=== PATIENT | male | born 1995 | race African-American/Black ===

== ENCOUNTER 2020-10-28 23:35 | Emergency (ER) | payer SELFPAY ==
[~2020-10-28] VITALS: Ht 180.3 cm; Wt 61.0 kg
[2020-10-29] MEDS ORDERED: AZITHROMYCIN 500 MG TABLET PO ONE (01:15)
[2020-10-29] MEDS ORDERED: IBUPROFEN 600MG TABLET PO ONE (01:15)
[2020-10-29] MEDS ORDERED: CEFTRIAXONE SODIUM 250 MG/VIAL IM ONE (01:15)
[2020-10-29 01:33] VITALS: BP 130/58
[2020-10-29 02:21] LABS: CLARITY URINE CLOUDY (CLEAR); COLOR URINE YELLOW (YELLOW); KETONES URINE TRACE (NEGATIVE); LEUKOCYTE ESTERASE URINE 2+ (NEGATIVE); NITRITE URINE NEGATIVE (NEGATIVE); OCCULT BLOOD URINE NEGATIVE (NEGATIVE); PH URINE 6.5 (4.5-8.0); PROTEIN URINE NEGATIVE (NEGATIVE)
== END 2020-10-29 02:35 | disposition home or self-care (01) ==
LOC: ER 23:35
DX: Z20.2 Contact with and (suspected) exposure to infections with a predominantly sexual mode of transmission (principal); Z71.89 Other specified counseling; F12.90 Cannabis use, unspecified, uncomplicated
CPT/HCPCS: 81003; 87086; 96372; 99283; J0696